=== PATIENT | female | born 1965 | race Caucasian/White ===

== ENCOUNTER 2021-01-28 17:41 | Emergency (ER) | payer SELFPAY ==
[~2021-01-28] VITALS: Ht 165.1 cm; Wt 69.9 kg
--- NOTE | 2021-01-28 17:41 | NUR ---
PT [id number] [facility] C/O BLE PAIN. ANXIOUS AND PARANOID REFUSING TRIAGE ASSESSMENT. PT IS AAOX3, NOT IN RESPIRATORY DISTRESS, V/S STABLE, KEPT RESTED AND COMFORTABLE. WILL CONTINUE TO MONITOR.
--- NOTE | 2021-01-28 18:05 | NUR ---
PT BIBRA/PD. REFUSING TO HAVE HER FOOT CHECKED. HAS A DOG WITH HER COVERED WITH BLANKET.
--- NOTE | 2021-01-28 18:27 | NUR ---
PT SEEN AND EXAMINED BY .
--- NOTE | 2021-01-28 18:37 | NUR ---
ER PHLEB AT BEDSIDE FOR BLOOD DRAW.
--- NOTE | 2021-01-28 18:45 | NUR ---
LPS AT BEDSIDE FOR POSSIBLE 5150 HOLD.
--- NOTE | 2021-01-28 21:16 | NUR ---
FRIEND, GARETT, . ABLE TO TAKE DOG
[2021-01-28 21:55] LABS: BILIRUBIN,URINE NEGATIVE (NEGATIVE); COLOR,URINE YELLOW (YELLOW); LEUKOCYTE ESTERASE ,URINE SMALL (NEGATIVE); NITRITE, URINE POSITIVE (NEGATIVE); PROTEIN,URINE NEGATIVE (NEGATIVE); UGLUCOSE NEGATIVE (NEGATIVE); UROBILINOGEN,URINE 0.2 EU/dL (0.2)
[2021-01-28 22:06] LABS: BACTERIA,URINE 3+ /HPF (None Seen); RBC,URINE 0-2 /HPF (0-2); SQUAMOUS EPITHELIAL CELL,UR Few /HPF (None Seen); WBC,URINE 21-50 /HPF (0-3)
--- NOTE | 2021-01-29 05:00 | NUR ---
PATIENT AMBULATED TO RESTOOM AND RETURNED TO BED. VSS, WILL CONTINUE TO MONITOR.
--- NOTE | 2021-01-29 07:05 | NUR ---
SALOMÓN HARRIS AT BEDSIDE FOR PSYCH EVAL.
--- NOTE | 2021-01-29 10:00 | NUR ---
SEEN AND EVALUATED BY STEVEN LORENZANA. 6130 HOLD WAS BROKEN. PT STATES NOT SUICIDAL OR HOMICIDAL. PROVIDED W/ FOOD AND PAIR OF SHOE. REFUSE TO SIGN HOMELESS WAIVER AND ACI. AMBULATORY W/ STEADY GAIT.
[2021-01-29 10:02] VITALS: BP 110/74
== END 2021-01-29 10:02 | disposition home or self-care (01) ==
LOC: ER 17:46
DX: S90.822A Blister (nonthermal), left foot, initial encounter (principal); S90.821A Blister (nonthermal), right foot, initial encounter; F22 Delusional disorders; X58.XXXA Exposure to other specified factors, initial encounter; Y93.89 Activity, other specified; Y92.89 Other specified places as the place of occurrence of the external cause; Y99.8 Other external cause status
CPT/HCPCS: 73630-TC; 81001; 87086-TC; 87186-TC